=== PATIENT | female | born 1985 | race Caucasian/White ===

== ENCOUNTER 2024-06-30 09:01 | Day surgery (SDC) | payer MEDICAID ==
[~2024-06-30] VITALS: Ht 165.1 cm; Wt 71.3 kg
[~2024-06-30 09:01] MED LIST: ARIP2TAB37 PO; DULO60CA65 PO; LISD30CA2 PO; NALT50TA5 PO
[2024-06-30 09:45] VITALS: BP 120/72; PULSE 55; RESP 16; TEMP 97.8
[2024-06-30 10:39] LABS: PREOP URINE HCG NEGATIVE (NEGATIVE)
[2024-06-30] MEDS ORDERED: simethicone 40mg/0.6ml oral drops 30ml ONE (10:59)
[2024-06-30] MEDS ORDERED: propofol inj 20 ML IV ONE ×3 (11:09→11:25)
[2024-06-30 11:34] VITALS: BP 94/53; PULSE 86; RESP 14; O2SAT 98
[2024-06-30 11:44] VITALS: BP 92/62; PULSE 59; RESP 18; O2SAT 100
[2024-06-30 11:54] VITALS: BP 90/61; PULSE 60; RESP 17; O2SAT 100
[2024-06-30 12:04] VITALS: BP 91/57; PULSE 62; RESP 15; O2SAT 97
[2024-06-30 12:14] VITALS: BP 102/71; PULSE 68; RESP 17; O2SAT 99
== END 2024-06-30 12:24 | disposition home or self-care (01) ==
LOC: GI LAB 09:01
PROVIDERS: ATTEND Internal Medicine Gastroenterology
DX: K52.9 Noninfective gastroenteritis and colitis, unspecified (principal); K57.30 Diverticulosis of large intestine without perforation or abscess without bleeding; K64.8 Other hemorrhoids; K29.50 Unspecified chronic gastritis without bleeding; K20.90 Esophagitis, unspecified without bleeding; K22.89 Other specified disease of esophagus; Z79.899 Other long term (current) drug therapy
CPT/HCPCS: 43239; 45380; 81025; 82948; J2704; J7030; Z7512; A4618; A4620